=== PATIENT | male | born 1990 | race Two or more races ===

== ENCOUNTER 2024-05-16 13:35 | Outpatient (AMB) | payer OTHER, SELFPAY ==
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
[2024-05-16 13:42] VITALS: BP 122/76; PULSE 86; TEMP 36.6; O2SAT 98; BMI 21.3
== END 2024-05-16 14:18 | disposition home or self-care (01) ==
PROVIDERS: Visit Provider Physician Assistant
DX: T30.0 Burn of unspecified body region, unspecified degree (principal)
CPT/HCPCS: 99051; 99204